=== PATIENT | female | born 1980 | race Caucasian/White ===

== ENCOUNTER 2017-10-24 09:20 | Emergency (ER) | payer OTHER ==
[~2017-10-24] VITALS: Ht 149.9 cm; Wt 65.4 kg
[2017-10-24] MEDS ORDERED: IBUPROFEN800 MG PO (11:26)
[2017-10-24 11:39] VITALS: BP 116/75
== END 2017-10-24 11:40 | disposition home or self-care (01) ==
LOC: EME 09:20
DX: S60.221A Contusion of right hand, initial encounter (principal); X50.9XXA Other and unspecified overexertion or strenuous movements or postures, initial encounter; R20.2 Paresthesia of skin; M79.601 Pain in right arm; Z87.891 Personal history of nicotine dependence
CPT/HCPCS: 73130; 99281; 99283